=== PATIENT | female | born 1965 | race Hispanic/Latino ===

== ENCOUNTER 2020-05-30 09:09 | Outpatient (CLI) | payer BC ==
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
[2020-05-30] MEDS ORDERED: Magnevist 469MG/ML 20 ML VIAL ONE (15:14)
== END 2020-05-30 09:10 | disposition home or self-care (01) ==
LOC: BICMRI 09:09
PROVIDERS: ATTEND Nurse Practitioner Acute Care
DX: S06.0X0A Concussion without loss of consciousness, initial encounter (principal); J32.0 Chronic maxillary sinusitis; M50.322 Other cervical disc degeneration at C5-C6 level
CPT/HCPCS: 70553; 72141; A9579